=== PATIENT | female | born 1945 | race Two or more races ===

== ENCOUNTER 2019-11-22 02:51 | Inpatient (IN) | payer MEDICARE, OTHER ==
[~2019-11-22] VITALS: Ht 154.9 cm; Wt 68.9 kg
--- NOTE | 2019-11-22 04:05 | NUR ---
NURSE NOTES: Received report from EVARISTO Beckford from [facility]. ETA 10-15 minutes.
[2019-11-22 05:00] VITALS: BP 110/65
--- NOTE | 2019-11-22 05:00 | NUR ---
NURSE NOTES: Patient arrived from [facility] via gurney accompanied by 2 account collector, and family members without any incident. Patient is awake, A/Ox4. Primarily Belarusian speaking. Denies pains this time. No signs of acute distress noted. Patient was transferred to hospital bed via draw sheet method by 2 account collector, and 2 staff members. Vital signs taken T=96.7, HR=87, RR=18, FK=976/65, N9aid=19%. Placed tele box on, SR on the monitor, 87 bpm. Checked IV site and flushed. No erythema, bleeding or infiltration noted. Peritoneal dialysis noted at left lower abdomen. Body assessment done with no skin issues. Med recon done. Bed at lowest position, brakes on, siderailsx3. Call light within reach. Will continue to monitor. Addendum: 11/25/19 at 1850 by Sabine Morales RN Peritoneal dialysis noted at right lower abdomen. Addendum: 11/25/19 at 185 by Sabine Morales RN Patient has no belongings.
--- NOTE | 2019-11-22 05:30 | NUR ---
NURSE NOTES: Paged Dr. Limon for admitting orders. Noted and carried out.
[2019-11-22] MEDS ORDERED: RESTASIS1 EACH BOTH EYES (06:08)
[2019-11-22] MEDS ORDERED: SYNTHROID137 MCG ORAL (06:08)
[2019-11-22] MEDS ORDERED: PANTOPRAZOLE SO20 MG ORAL (06:08)
[2019-11-22] MEDS ORDERED: PATANOL1 DROP BOTH EYES (06:08)
[2019-11-22] MEDS ORDERED: ALENDRONAT70 MG/75 M PO (06:08)
[2019-11-22] MEDS ORDERED: ASPIRIN81 M3 PO (06:08)
[2019-11-22] MEDS ORDERED: CALCITRIOL0.25 MCG PO (06:08)
[2019-11-22] MEDS ORDERED: SIMVASTATIN20 MG ORAL (06:08)
--- NOTE | 2019-11-22 07:35 | NUR ---
NURSE NOTES: Pt alert x4. on cardiac cath no signs of cardiac or respiratory distress. pt is not complaining of pain. Bed locked and in lowest position. Call light within reach. Pt has peritoneal dialysis cath. Will continue to follow plan of care.
--- NOTE | 2019-11-22 07:40 | NUR ---
NURSE NOTES: Still for MRSA, VRE and CRE. Will endorsed to AM RN shift.
--- NOTE | 2019-11-22 07:45 | NUR ---
HAND-OFF: Report given to EVARISTO Singh. Plan of care endorsed.
[2019-11-22 08:29] VITALS: BP 102/48
[2019-11-22 09:00] VITALS: BP 116/65
[2019-11-22] MEDS ORDERED: Aspirin Baby 81mg ORAL SCH (09:00)
[2019-11-22 09:17] LABS: BASOPHILS % (AUTO) 1.3 % (0.0-2.0); HEMATOCRIT 32.3 % (37.0-47.0); HEMOGLOBIN 11.7 G/DL (12.0-16.0); LYMPHOCYTES % (AUTO) 25.7 % (20.0-45.0); MEAN CORPUSCULAR VOLUME 100 FL (80-99); MONOCYTES % (AUTO) 12.5 % (1.0-10.0); NEUTROPHILS % (AUTO) 59.5 % (45.0-75.0); PLATELET COUNT 117 K/UL (150-450); RED BLOOD COUNT 3.24 M/UL (4.20-5.40); RED CELL DISTRIBUTION WIDTH 12.3 % (11.6-14.8); WHITE BLOOD COUNT 6.4 K/UL (4.8-10.8)
[2019-11-22 09:31] LABS: ALANINE AMINOTRANSFERASE 19 U/L (12-78); ALBUMIN 2.4 G/DL (3.4-5.0); ALBUMIN/GLOBULIN RATIO 0.6 (1.0-2.7); ALKALINE PHOSPHATASE 178 U/L (46-116); ANION GAP 11 mmol/L (5-15); ASPARTATE AMINO TRANSFERASE 26 U/L (15-37); BILIRUBIN,TOTAL 1.2 MG/DL (0.2-1.0); BLOOD UREA NITROGEN 45 mg/dL (7-18); CARBON DIOXIDE 28 MMOL/L (21-32); CHLORIDE 89 MMOL/L (98-107); PHOSPHORUS 6.1 MG/DL (2.5-4.9); POTASSIUM 2.8 MMOL/L (3.5-5.1); SODIUM 128 MMOL/L (136-145)
[2019-11-22 10:32] LABS: BILIRUBIN,DIRECT 0.4 MG/DL (0.0-0.3)
--- NOTE | 2019-11-22 10:53 | NUR ---
MRI BRAIN W/O COMPLETED.
[2019-11-22] MEDS: Heparin 5000 units/ml inj SUBQ SCH ×2 (11:33→20:59)
[2019-11-22 12:00] VITALS: BP 116/65
--- NOTE | 2019-11-22 13:27 | Consultation ---
History of Present Illness General Date patient seen: Nov 22, 2019 Time patient seen: 11:30 Chief Complaint: altered mental status, L sided numbness Referring physician: Dr Limon Reason for Consultation: critical care/hospitalist Present Illness HPI 74 y/old female with PMH of ESRD on peritoneal dialysis at home, amyloidosis, hypothyroidism, hyperlipidemia, OP, intially presented to OSH with c/o confusion and L sided numbness. 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 moose was not a candidate for IV tPA due since she had a very mild deficit , only decreased sensation to the left side of the face, arm and leg. No pronator drift. Allergies: Coded Allergies: No Known Allergies (Unverified , 11/22/19) Medication History Scheduled Alendronate Sodium (Alendronate Sodium), 70 MG PO ONCE A WEEK, (Reported) Aspirin (Aspirin), 81 MG PO 3XW, (Reported) Calcitriol (Calcitriol), 0.25 MCG PO 2XW, (Reported) Cyclosporine (Restasis), 1 DROP BOTH EYES EVERY 12 HOURS, (Reported) Levothyroxine Sodium (Synthroid), 88 MCG ORAL DAILY, (Reported) Olopatadine (Patanol), 1 DROP BOTH EYES DAILY, (Reported) Pantoprazole (Pantoprazole), 40 MG ORAL DAILY, (Reported) Simvastatin (Zocor), 20 MG ORAL BEDTIME, (Reported) Patient History Healthcare decision maker Resuscitation status Full Code Advanced Directive on File Review of Systems Respiratory: Reports: no symptoms Cardiovascular: Reports: no symptoms Gastrointestinal: Reports: constipation Genitourinary: Reports: other - renal failure on peritoneal dialysis at home Musculoskeletal: Reports: joint pain Skin: Reports: no symptoms Psychiatric: Reports: no symptoms Neurological: Reports: see HPI Endocrine: Reports: no symptoms Hematologic/Lymphatic: Reports: no symptoms Physical Exam General Appearance: no apparent distress, other - awake, Mongolian speaking female Lines, tubes and drains: peripheral HEENT: normocephalic, atraumatic, anicteric Neck: non-tender, supple Respiratory/Chest: lungs clear, no respiratory distress, no accessory muscle use Cardiovascular/Chest: normal rate, regular rhythm Abdomen: normal bowel sounds, non tender, soft Extremities: normal range of motion, non-tender, no calf tenderness Skin Exam: warm/dry Neurologic: alert, responsive, other - no pronator drift, motor strength even and symmetrical bilaterally 5/5, no sensory deficits Musculoskeletal: normal muscle bulk Last 24 Hour Vital Signs Date Time Temp Pulse Resp B/P (MAP) Pulse Ox O2 Delivery O2 Flow Rate FiO2 11/22/19 08:29 98.3 83 20 102/48 (66) 97 11/22/19 08:00 82 11/22/19 05:55 Room Air 11/22/19 05:00 96.6 87 18 110/65 (80) 98 11/22/19 05:00 87 Intake and Output 11/21/19 11/22/19 19:00 07:00 # Voids 1 Laboratory Tests Test 11/22/19 08:50 White Blood Count 6.4 K/UL (4.8-10.8) Red Blood Count 3.24 M/UL (4.20-5.40) L Hemoglobin 11.7 G/DL (12.0-16.0) L Hematocrit 32.3 % (37.0-47.0) L Mean Corpuscular Volume 100 FL (80-99) H Mean Corpuscular Hemoglobin 36.0 PG (27.0-31.0) H Mean Corpuscular Hemoglobin Concent 36.1 G/DL (32.0-36.0) H Red Cell Distribution Width 12.3 % (11.6-14.8) Platelet Count 117 K/UL (150-450) L Mean Platelet Volume 6.4 FL (6.5-10.1) L Neutrophils (%) (Auto) 59.5 % (45.0-75.0) Lymphocytes (%) (Auto) 25.7 % (20.0-45.0) Monocytes (%) (Auto) 12.5 % (1.0-10.0) H Eosinophils (%) (Auto) 1.0 % (0.0-3.0) Basophils (%) (Auto) 1.3 % (0.0-2.0) Sodium Level 128 MMOL/L (136-145) L Potassium Level 2.8 MMOL/L (3.5-5.1) L Chloride Level 89 MMOL/L (98-107) L Carbon Dioxide Level 28 MMOL/L (21-32) Anion Gap 11 mmol/L (5-15) Blood Urea Nitrogen 45 mg/dL (7-18) H Creatinine 9.0 MG/DL (0.55-1.30) H Estimat Glomerular Filtration Rate mL/min (>60) Glucose Level 122 MG/DL (74-106) H Calcium Level 9.0 MG/DL (8.5-10.1) Phosphorus Level 6.1 MG/DL (2.5-4.9) H Magnesium Level 2.0 MG/DL (1.8-2.4) Total Bilirubin 1.2 MG/DL (0.2-1.0) H Direct Bilirubin 0.4 MG/DL (0.0-0.3) H Aspartate Amino Transf (AST/SGOT) 26 U/L (15-37) Alanine Aminotransferase (ALT/SGPT) 19 U/L (12-78) Alkaline Phosphatase 178 U/L (46-116) H Total Protein 6.5 G/DL (6.4-8.2) Albumin 2.4 G/DL (3.4-5.0) L Globulin 4.1 g/dL Albumin/Globulin Ratio 0.6 (1.0-2.7) L Height (Feet): 5 Height (Inches): 1.00 Weight (Pounds): 152 Medications Current Medications Medications (Trade) Dose Ordered Sig/Kelly Route PRN Reason Start Time Stop Time Status Last Admin Dose Admin Alendronate Sodium (Fosamax) 70 mg QWEEK ORAL 11/26/19 06:30 12/26/19 06:29 Aspirin (ASA) 81 mg 3XW ORAL 11/22/19 09:00 12/22/19 08:59 11/22/19 09:28 Atorvastatin Calcium (Lipitor) 10 mg BEDTIME ORAL 11/22/19 21:00 12/22/19 20:59 Calcitriol (Rocatrol) 0.25 mcg 2XW ORAL 11/23/19 09:00 12/23/19 08:59 Heparin Sodium (Porcine) (Heparin 5000 units/ml) 5,000 units EVERY 12 HOURS SUBQ 11/22/19 10:00 12/22/19 09:59 11/22/19 11:33 Levothyroxine Sodium (Synthroid) 88 mcg DAILY@0630 ORAL 11/23/19 06:30 12/23/19 06:29 Pantoprazole (Protonix) 40 mg DAILY ORAL 11/22/19 09:00 12/22/19 08:59 11/22/19 09:27 Patient Own Medication (Patient's Own Med) 1 ea BID BOTH EYES 11/22/19 18:00 12/22/19 17:59 Patient Own Medication (Patient's Own Med) 1 ea DAILY BOTH EYES 11/22/19 14:00 12/22/19 13:59 Assessment/Plan Assessment/Plan: ASSESSMENT acute encephalopathy left side numbness, r/o CVA/TIA ESRD on peritoneal dialysis amyloidosis hypothyroidism OP E/lyte imbalance PLAN OF CARE tele MRI brain ECHO carotid Duplex Lipid panel neuro eval ASA, statin swallow eval PT eval and Rx fall precautions nephro eval for dialysis , only HD can be povided, since peritoneal dialysis not available at this hx resume home meds DVT, GI prophylaxis case discussed and evaluated by supervising physician Rand Cornell NP Nov 22, 2019 13:27
--- NOTE | 2019-11-22 14:05 | NUR ---
TRANSFER UPDATE CLINICALS FAXED TO: [facility] TRANSFER [facility] Addendum: 11/22/19 at 1531 by BREANN FLORES LVN LVN SPOKE WITH LIFE SKILLS TEACHER, WON, AT [facility] THEY ARE REVIEWING INFORMATION. ACCEPTING PHYSICIAN DONNY BE DR PEDROZA.....THEY WANT TO KNOW WHO WILL BE THE ACCEPTING PAYROLL AND BENEFITS SPECIALIST MESSAGE LEFT FOR DR ZALDIVAR AND DR PEDROZA [facility] [employer] SPECIALIST T: [phone] Addendum: 11/22/19 at 1538 by BREANN FLORES LVN LVN [facility] UNABLE TO ACCEPT THEIR DIALYSIS SERVICE ONLY HAS ONE CYPHER FOR PERITONEAL DIALYSIS
--- NOTE | 2019-11-22 14:19 | Consultation ---
Consult Note Consult Note asked to eval at the request of Dr Limon for dialysis management history taken from daughter in law , Haydee 74 y/old female with PMH of ESRD on peritoneal dialysis at home, amyloidosis, hypothyroidism, hyperlipidemia, OP, intially presented to OSH with c/o confusion and L sided numbness. 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 patient was not a candidate for IV tPA due since she had a very mild deficit , only decreased sensation to the left side of the face, arm and leg. No pronator drift. : No Known Allergies (Unverified , 11/22/19) Meds: Alendronate Sodium (Alendronate Sodium), 70 MG PO ONCE A WEEK, (Reported) Aspirin (Aspirin), 81 MG PO 3XW, (Reported) Calcitriol (Calcitriol), 0.25 MCG PO 2XW, (Reported) Cyclosporine (Restasis), 1 DROP BOTH EYES EVERY 12 HOURS, (Reported) Levothyroxine Sodium (Synthroid), 88 MCG ORAL DAILY, (Reported) Olopatadine (Patanol), 1 DROP BOTH EYES DAILY, (Reported) Pantoprazole (Pantoprazole), 40 MG ORAL DAILY, (Reported) Simvastatin (Zocor), 20 MG ORAL BEDTIME, (Reported) No allergy Full Code examined data reviewed Assessment/Plan acute encephalopathy, ? Metabolic left side numbness, r/o CVA/TIA ESRD on peritoneal dialysis amyloidosis hypothyroidism Electrolyte imbalance Anemia Peritoneal dialysis is a service not available at [facility] MRI brain neuro eval 2 D ECHO PO K supplements carotid Duppelx Lipid panel ASA, statin swallow eval PT eval and Rx fall precautions nephro eval for dialysis resume home meds DVT, GI prophylaxis Addendum 35 minutes face to face conversation I had a long conversation with Haydee the patient's [id number] with presence of Mer nurse manager outpatient at 2 E. I explained to her that the peritoneal dialysis is a service that is not offered at [facility] and when and if dialysis is needed the patient has to receive hemodialysis. I have informed the Dr Limon and the mental health case manager to arrange transferring the patient to a hospital which provides peritoneal dialysis. However if the transfer cannot be arranged patient may need hemodialysis as early as tomorrow. Haydee will discuss that with the rest of the family and will let me know the decision in that regard. Faheem Castillo MD Nov 22, 2019 14:19
[2019-11-22] MEDS: OLOPATADINE 0.2% BOTH EYES SCH (14:29)
[2019-11-22 16:00] VITALS: BP 119/64
[2019-11-22] MEDS ORDERED: FUROSEMIDE40 MG ORAL (16:07)
[2019-11-22] MEDS: RESTASIS 0.05% BOTH EYES SCH (18:24)
--- NOTE | 2019-11-22 19:55 | NUR ---
HAND-OFF: Report given to Usha/EVARISTO, pt in stable condition. Pt still needs to urinate so we can collect urine sample. If pt is unable to urinate there is an order for straight cath. Doctor Holly gave telephone order to ok straight cath.
--- NOTE | 2019-11-22 19:56 | NUR ---
NURSE NOTES: Received pt from EVARISTO Singh. Pt awake, alert, and talkative. Bed in lowest position. Call light within reach. Will continue to monitor.
[2019-11-22 20:00] VITALS: BP 130/70
[2019-11-22] MEDS: Furosemide 40mg tab ORAL SCH (20:14)
--- NOTE | 2019-11-22 21:30 | NUR ---
NURSE NOTES: Called and left a message with Dr. Limon and Dr. Castillo regarding pts anxiety and labs. Awaiting call back.
[2019-11-22] MEDS ORDERED: ALPRAZolam 0.25mg tab ORAL PRN (23:15)
[2019-11-23] VITALS: BP 124/54
--- NOTE | 2019-11-23 01:14 | NUR ---
HAND-OFF: Report given to EVARISTO Junior. Pt stable.
--- NOTE | 2019-11-23 01:15 | NUR ---
NURSE NOTES: Received pt from EVARISTO Kerr. Pt is asleep resting in bed with family at bedside. Iv site intact. Bed locked in lowest position, bed alarm on, call light within reach. will continue with plan of care.
[2019-11-23 04:00] VITALS: BP 128/61
[2019-11-23 07:08] LABS: BASOPHILS % (AUTO) 1.4 % (0.0-2.0); EOSINOPHILS % (AUTO) 1.9 % (0.0-3.0); HEMATOCRIT 31.5 % (37.0-47.0); HEMOGLOBIN 11.7 G/DL (12.0-16.0); LYMPHOCYTES % (AUTO) 29.8 % (20.0-45.0); MEAN CORPUSCULAR VOLUME 98 FL (80-99); MONOCYTES % (AUTO) 13.8 % (1.0-10.0); NEUTROPHILS % (AUTO) 53.1 % (45.0-75.0); PLATELET COUNT 128 K/UL (150-450); RED BLOOD COUNT 3.23 M/UL (4.20-5.40); RED CELL DISTRIBUTION WIDTH 12.1 % (11.6-14.8); WHITE BLOOD COUNT 6.5 K/UL (4.8-10.8)
[2019-11-23 07:18] LABS: % IRON SATURATION 53 % (15-50); IRON 72 ug/dL (50-175); TOTAL IRON BINDING CAPACITY 137 ug/dL (250-450)
[2019-11-23 07:25] LABS: GAMMA GLUTAMYL TRANSPEPTIDASE 212 U/L (5-85); PHOSPHORUS 6.4 MG/DL (2.5-4.9)
[2019-11-23 07:27] LABS: ALANINE AMINOTRANSFERASE 19 U/L (12-78); ALBUMIN 2.3 G/DL (3.4-5.0); ALBUMIN/GLOBULIN RATIO 0.6 (1.0-2.7); ALKALINE PHOSPHATASE 182 U/L (46-116); ANION GAP 12 mmol/L (5-15); ASPARTATE AMINO TRANSFERASE 24 U/L (15-37); BILIRUBIN,TOTAL 1.1 MG/DL (0.2-1.0); BLOOD UREA NITROGEN 47 mg/dL (7-18); CALCIUM 9.2 MG/DL (8.5-10.1); CARBON DIOXIDE 26 MMOL/L (21-32); CHLORIDE 88 MMOL/L (98-107); CHOLESTEROL 106 MG/DL (< 200); CREATININE 9.3 MG/DL (0.55-1.30); FERRITIN 367 NG/ML (8-388); HDL CHOLESTEROL 29 MG/DL (40-60); POTASSIUM 3.8 MMOL/L (3.5-5.1); SODIUM 125 MMOL/L (136-145); TRIGLYCERIDES 74 MG/DL (30-150)
[2019-11-23 07:28] LABS: BILIRUBIN,DIRECT 0.4 MG/DL (0.0-0.3)
[2019-11-23 07:29] LABS: INR 1.1 (0.9-1.1)
--- NOTE | 2019-11-23 07:29 | NUR ---
HAND-OFF: Report given to EVARISTO Koo. Pt is awake and resting in bed in no acute distress. endorsed plan of care.
--- NOTE | 2019-11-23 07:45 | NUR ---
NURSE NOTES: Addendum: 11/23/19 at 1146 by KACEY MORALES RN Recvd pt. Pt is awake and oriented x2. Family at bedside. Pt expressed desire to be dc home to continue PD. Dr Castillo states itsup to family to decide if they want HD or continue PD. Haydee, family member was notified.
[2019-11-23 08:00] VITALS: BP 102/63
[2019-11-23] MEDS: Heparin 5000 units/ml inj SUBQ SCH (08:22)
--- NOTE | 2019-11-23 08:30 | NUR ---
Dr. Lutzan here to discuss treatment plan with patient & family; He Explained to Pt. & Family lab. results are abnormal and based on results he discussed need for patient to have Dialysis. He explained since [facility] [place], his recommendation is for patient to have temporary dialysis catheter placed for temporary Hemodialysis. Family wants to discuss the issue with Dr. Limon, then they will decide.
[2019-11-23] MEDS: RESTASIS 0.05% BOTH EYES SCH (08:31)
[2019-11-23] MEDS: OLOPATADINE 0.2% BOTH EYES SCH (08:32)
[2019-11-23] MEDS: Furosemide 40mg tab ORAL SCH (08:40)
[2019-11-23] MEDS ORDERED: Calcitriol 0.25mcg Cap ORAL SCH (09:00)
--- NOTE | 2019-11-23 09:12 | Nephrology Progress Note ---
Assessment/Plan Problem List: (1) ESRD (end stage renal disease) on dialysis (2) Metabolic encephalopathy (3) Anemia in chronic kidney disease (CKD) Assessment acute encephalopathy, ? Metabolic- worsenning HypoNatremia left side numbness, r/o CVA/TIA ESRD on peritoneal dialysis amyloidosis hypothyroidism Electrolyte imbalance Anemia Plan Peritoneal dialysis is a service not available at [facility] MRI brain neuro eval 2 D ECHO PO K supplements carotid Duppelx Lipid panel ASA, statin swallow eval PT eval and Rx fall precautions nephro eval for dialysis resume home meds DVT, GI prophylaxis I believe that patient need to be hemodialysed today since Peritoneal dialysis is not a service offered at [facility] and transfer to other facility been unsuccessful discussed with family in the room at presence of RN "Hanane" and charge nurse "Mer" 35 minutes Subjective ROS Limited/Unobtainable: No Constitutional: Reports: malaise, weakness Objective Objective Last 24 Hour Vital Signs Date Time Temp Pulse Resp B/P (MAP) Pulse Ox O2 Delivery O2 Flow Rate FiO2 11/23/19 08:00 97.7 77 20 102/63 (76) 98 11/23/19 08:00 83 11/23/19 04:00 81 11/23/19 04:00 97.5 81 18 128/61 (83) 95 11/23/19 00:00 83 11/23/19 00:00 96.8 83 18 124/54 (77) 97 11/22/19 21:00 Room Air 11/22/19 20:00 98.8 86 18 130/70 (90) 100 11/22/19 20:00 79 11/22/19 16:00 86 11/22/19 16:00 97.0 82 18 119/64 (82) 99 11/22/19 12:00 71 11/22/19 12:00 97.1 74 19 116/65 (82) 95 Intake and Output 11/22/19 11/23/19 19:00 07:00 Intake Total 780 ml Balance 780 ml Intake Oral 780 ml # Voids 1 3 # Bowel Movements 2 2 Laboratory Tests 11/23/19 06:06: White Blood Count 6.5, Red Blood Count 3.23L, Hemoglobin 11.7L, Hematocrit 31.5L , Mean Corpuscular Volume 98, Mean Corpuscular Hemoglobin 36.1H, Mean Corpuscular Hemoglobin Concent 37.0H, Red Cell Distribution Width 12.1, Platelet Count 128L, Mean Platelet Volume 6.5, Neutrophils (%) (Auto) 53.1, Lymphocytes (%) (Auto) 29.8, Monocytes (%) (Auto) 13.8H, Eosinophils (%) (Auto) 1.9, Basophils (%) (Auto) 1.4, Prothrombin Time 11.5, Prothromb Time International Ratio 1.1, Activated Partial Thromboplast Time 33, Sodium Level 125L, Potassium Level 3.8, Chloride Level 88L, Carbon Dioxide Level 26, Anion Gap 12, Blood Urea Nitrogen 47H, Creatinine 9.3H, Estimat Glomerular Filtration Rate , Glucose Level 88, Hemoglobin A1c 5.3, Uric Acid 6.8, Calcium Level 9.2, Phosphorus Level 6.4H, Iron Level 72, Total Iron Binding Capacity 137L, Percent Iron Saturation 53H, Unsaturated Iron Binding 65L, Ferritin 367, Total Bilirubin 1.1H, Direct Bilirubin 0.4H, Gamma Glutamyl Transpeptidase 212H, Aspartate Amino Transf (AST/SGOT) 24, Alanine Aminotransferase (ALT/SGPT) 19, Alkaline Phosphatase 182H, Troponin I 0.023, C-Reactive Protein, Quantitative 2.6H, Pro-B-Type Natriuretic Peptide 1387H, Total Protein 6.4, Albumin 2.3L, Globulin 4.1, Albumin/Globulin Ratio 0.6L, Triglycerides Level 74, Cholesterol Level 106, LDL Cholesterol 63, HDL Cholesterol 29L, Cholesterol/HDL Ratio 3.7, Vitamin B12 Level 1557H, Folate 11.6, Thyroid Stimulating Hormone (TSH) 0.145L Height (Feet): 5 Height (Inches): 1.00 Weight (Pounds): 152 General Appearance: no apparent distress, lethargic Cardiovascular: normal rate Respiratory/Chest: decreased breath sounds Abdomen: distended Faheem Castillo MD Nov 23, 2019 09:12
--- NOTE | 2019-11-23 09:33 | Diagnostic Imaging Report ---
Indication: Altered mental status Technique: The head was imaged in a 1.5 Fina magnet. Sequences obtained include sagittal and axial T1 FLAIR, axial T2 fast spin echo with fat saturation, axial T2* GRE, axial T2 FLAIR, diffusion and ADC map. Comparison: None There is a large intraventricular cystic lesion measuring 3.2 x 2.5 x 4.7 cm within the left lateral ventricle. The cystic lesion is homogeneous CSF intensity with a barely perceptible wall and appears to be associated with the left choroid plexus. This is consistent with choroid plexus cyst and is notable for slightly expanding the size of the left lateral ventricle. Part of the cyst crosses midline toward the right. There is generalized atrophy of the brain characterized by prominence of the sulci ventricles and basal cisterns. There is no evidence of hydrocephalus, acute CVA, mass effect, edema or hemorrhage. Diffusion and is normal. There is periventricular T2 hyperintense signal consistent chronic small vessel disease. There is a small air-fluid level in the left maxillary sinus. There is a 1.5 cm fluid retention cyst in the right maxillary sinus. Corpus callosum is unremarkable. Sella is unremarkable. Bone marrow signal is normal. 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 The finding may be incidental. Please correlate clinically. Generalized atrophy of the brain. Chronic small vessel disease involving periventricular white matter. Sinus disease
--- NOTE | 2019-11-23 10:30 | Diagnostic Imaging Report ---
Indication: CVA. Altered mental status TECHNIQUE: Duplex extracranial carotid and vertebral artery sonography performed with color flow imaging and waveform analysis. COMPARISON: None FINDINGS: Right carotid: Grayscale and color-flow imaging demonstrating no hemodynamically significant stenosis within the common carotid artery, extracranial internal carotid artery. Peak systolic and end-diastolic velocities are within normal limits. ICA/CCA ratios are within normal limits. Mild heterogeneous plaques are demonstrated consistent with atherosclerotic disease. Left carotid: Grayscale and color-flow imaging demonstrating no hemodynamically significant stenosis within the common carotid artery, extracranial internal carotid artery. Peak systolic and end-diastolic velocities are within normal limits. ICA/CCA ratios are within normal limits. Mild heterogeneous plaques are demonstrated consistent with atherosclerotic disease. Vertebral arteries: Antegrade flow demonstrated within both vertebral arteries. IMPRESSION: No hemodynamically significant extracranial carotid artery stenosis identified. Antegrade flow within both vertebral arteries. This report utilizes carotid stenosis grading criteria based on the meeting of Society of radiologists in ultrasound consensus conference, July 2002.
--- NOTE | 2019-11-23 10:33 | NUR ---
NURSE NOTES: per Dr Limon is ok to dc home so pt can continue pd
--- NOTE | 2019-11-23 11:46 | NUR ---
NURSE NOTES: Pt was dc home. Advised pt to follow up with neurologist, patient and family understood. IV removed, cutting and splicing supervisor removed, ID band removed. Pt dc in stable condition, pt went home with josue and her son via private vehicle
--- NOTE | 2019-11-23 12:32 | NUR ---
CASE MANAGEMENT:REVIEW 11/22/19 74 YR OLD FEMALE BIBA FROM [facility] CC: AMS. LT SIDED NUMBNESS PMH: ESRD ON PD SI: ACUTE ENCEPHALOPATHY 96.6 87 18 110/65 98% ON RA H/H-11.7/32.3 PLT-117 NA-128 K-2.8 BUN+45 CR+9.0 IS: PROTONIX PO QD ASA PO 3X/W K-DUR PO X1 LASIX PO Q12 : TO TELEMETRY PLAN: NEPHRO CONSULT 11/23/19 DISCHARGE HOME
[2019-11-23] MEDS ORDERED: Docusate 100mg cap ORAL SCH (13:00)
--- NOTE | 2019-11-23 16:26 | Internal Med Progress Note ---
Subjective Date of Service: Nov 23, 2019 Physician Name Omar Barrera Attending Physician Kanu Limon MD Allergies: Coded Allergies: No Known Allergies (Unverified , 11/22/19) ROS Limited/Unobtainable: No Constitutional: Reports: no symptoms HEENT: Reports: no symptoms Cardiovascular: Reports: no symptoms Respiratory: Reports: no symptoms Gastrointestinal/Abdominal: Reports: no symptoms Genitourinary: Reports: no symptoms Neurologic/Psychiatric: Reports: no symptoms Subjective 74 YO F with history of ESRD, on peritoneal dialysis, admitted with confusion and generalized weakness. Now hyponatremia. Cover for Int Med-Dr Limon. Objective Last Vital Signs Date Time Temp Pulse Resp B/P (MAP) Pulse Ox O2 Delivery O2 Flow Rate FiO2 11/23/19 09:00 Room Air 11/23/19 08:00 97.7 77 20 102/63 (76) 98 General Appearance: WD/WN, no apparent distress, alert EENT: PERRL/EOMI, normal ENT inspection Neck: non-tender, normal alignment, supple, normal inspection Cardiovascular: normal peripheral pulses, normal rate, regular rhythm, no gallop/murmur, no JVD Respiratory/Chest: chest wall non-tender, lungs clear, normal breath sounds, no respiratory distress, no accessory muscle use Abdomen: normal bowel sounds, non tender, soft, no organomegaly, no mass Extremities: normal range of motion, non-tender Neurologic: catalog specialist II-XII grossly normal, no motor/sensory deficits Skin: normal pigmentation, warm/dry Laboratory Tests Test 11/23/19 06:06 White Blood Count 6.5 K/UL (4.8-10.8) Red Blood Count 3.23 M/UL (4.20-5.40) L Hemoglobin 11.7 G/DL (12.0-16.0) L Hematocrit 31.5 % (37.0-47.0) L Mean Corpuscular Volume 98 FL (80-99) Mean Corpuscular Hemoglobin 36.1 PG (27.0-31.0) H Mean Corpuscular Hemoglobin Concent 37.0 G/DL (32.0-36.0) H Red Cell Distribution Width 12.1 % (11.6-14.8) Platelet Count 128 K/UL (150-450) L Mean Platelet Volume 6.5 FL (6.5-10.1) Neutrophils (%) (Auto) 53.1 % (45.0-75.0) Lymphocytes (%) (Auto) 29.8 % (20.0-45.0) Monocytes (%) (Auto) 13.8 % (1.0-10.0) H Eosinophils (%) (Auto) 1.9 % (0.0-3.0) Basophils (%) (Auto) 1.4 % (0.0-2.0) Prothrombin Time 11.5 SEC (9.30-11.50) Prothromb Time International Ratio 1.1 (0.9-1.1) Activated Partial Thromboplast Time 33 SEC (23-33) Sodium Level 125 MMOL/L (136-145) L Potassium Level 3.8 MMOL/L (3.5-5.1) Chloride Level 88 MMOL/L (98-107) L Carbon Dioxide Level 26 MMOL/L (21-32) Anion Gap 12 mmol/L (5-15) Blood Urea Nitrogen 47 mg/dL (7-18) H Creatinine 9.3 MG/DL (0.55-1.30) H Estimat Glomerular Filtration Rate mL/min (>60) Glucose Level 88 MG/DL (74-106) Hemoglobin A1c 5.3 % (4.3-6.0) Uric Acid 6.8 MG/DL (2.6-7.2) Calcium Level 9.2 MG/DL (8.5-10.1) Phosphorus Level 6.4 MG/DL (2.5-4.9) H Iron Level 72 ug/dL (50-175) Total Iron Binding Capacity 137 ug/dL (250-450) L Percent Iron Saturation 53 % (15-50) H Unsaturated Iron Binding 65 ug/dL (112-346) L Ferritin 367 NG/ML (8-388) Total Bilirubin 1.1 MG/DL (0.2-1.0) H Direct Bilirubin 0.4 MG/DL (0.0-0.3) H Gamma Glutamyl Transpeptidase 212 U/L (5-85) H Aspartate Amino Transf (AST/SGOT) 24 U/L (15-37) Alanine Aminotransferase (ALT/SGPT) 19 U/L (12-78) Alkaline Phosphatase 182 U/L (46-116) H Troponin I 0.023 ng/mL (0.000-0.056) C-Reactive Protein, Quantitative 2.6 mg/dL (0.00-0.90) H Pro-B-Type Natriuretic Peptide 1387 pg/mL (0-125) H Total Protein 6.4 G/DL (6.4-8.2) Albumin 2.3 G/DL (3.4-5.0) L Globulin 4.1 g/dL Albumin/Globulin Ratio 0.6 (1.0-2.7) L Triglycerides Level 74 MG/DL (30-150) Cholesterol Level 106 MG/DL (< 200) LDL Cholesterol 63 mg/dL (<100) HDL Cholesterol 29 MG/DL (40-60) L Cholesterol/HDL Ratio 3.7 (3.3-4.4) Vitamin B12 Level 1557 PG/ML (193-986) H Folate 11.6 NG/ML (8.6-58.9) Thyroid Stimulating Hormone (TSH) 0.145 uiU/mL (0.358-3.740) Intake and Output 11/22/19 11/23/19 19:00 07:00 Intake Total 780 ml Balance 780 ml Intake Oral 780 ml # Voids 1 3 # Bowel Movements 2 2 Assessment/Plan Problem List: (1) HTN (hypertension) (2) Hypothyroidism Assessment & Plan: Continue Synthroid. (3) Hypocholesterolemia Assessment & Plan: Continue lipitor. (4) Altered mental status Assessment & Plan: ?acute encephalopathy vs hyponatremia. MRI brain pending (5) Hyponatremia (6) ESRD (end stage renal disease) on dialysis Assessment & Plan: On peritoneal dialysis. Peritoneal dialysis not available at [facility]-attempt to transfer to facility that offers peritoneal dialysis. See nephrology note. Assessment/Plan D/C home for peritoneal dialysis and to follow up with nephrology. Omar Barrera MD Nov 23, 2019 16:26
--- NOTE | 2019-11-23 16:27 | History & Physical ---
History and Physical History & Physicial Dictated for Int Med-DR Limon no. [id number] Omar Barrera MD Nov 23, 2019 16:27
--- NOTE | 2019-11-25 21:44 | Discharge Summary ---
Discharge Summary Discharge Summary _ DATE OF ADMISSION: 11/22/2019 DATE OF DISCHARGE: 11/23/2019 DISCHARGED BY: Dr. Limon REASON FOR ADMISSION: 74 years old female with past medical history of end-stage renal disease, on peritoneal dialysis at home, amyloidosis, hypothyroidism, hyperlipidemia, osteoporosis, initially presented to outside hospital with complaint of confusion and left-sided numbness. 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 Patient had a very mild deficit with only decreased sensation in the left side of the face , arm and leg. No pronator drift. Patient subsequently transferred to [facility] for further evaluation and management. [facility] critical care Dr. Enamorado sales team leader Dr. Castillo [facility]: Patient admitted to telemetry floor. 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 Generalized atrophy of the brain. Chronic small vessel disease involving periventricular white matter. No acute intracranial pathology. Carotid duplex revealed no hemodynamically significant extracranial carotid artery stenosis. Antegrade flow within both vertebral arteries. Lipid panel was stable. Telemetry demonstrated sinus rhythm. Troponin negative. Patient was continued on aspirin and statin. Echocardiogram revealed preserved ejection fraction of 55 to 60% with no evidence of pericardial effusion. No evidence of wall motion abnormality. Right ventricular systolic pressure of 30. Anemia work-up revealed evidence of anemia of chronic disease , stable B12 and folate. Patient noted to have electrolyte abnormalities: low sodium 128 and low potassium 2.8. Peritoneal dialysis was not a service available at [facility]. Patient was offered to have hemodialysis , which she declined. Potassium was replaced, stable upon discharge. Home medications resumed . Swallow evaluation was ordered, patient declined, since reported no problems with swallowing, Physical therapy evaluation was ordered. Fall precautions maintained. DVT and GI prophylaxis provided. Encephalopathy was likely metabolic due to worsening hyponatremia. Patient decided to go home for peritoneal dialysis and to follow-up with her your own sales team leader. Patient subsequently was discharged home accompanied by her family, with home health services to follow. Due to rapid and expected improvement patient condition patient was discharged in 1 day FINAL DIAGNOSES: Acute metabolic encephalopathy Left-sided numbness ,possible TIA versus CVA End-stage renal disease ,on peritoneal dialysis Amyloidosis Hypothyroidism Osteoporosis Electrolyte imbalance Anemia of chronic kidney disease DISCHARGE MEDICATIONS: See Medication Reconciliation list. DISCHARGE INSTRUCTIONS: Patient was discharged home. Follow up with outpatient sales team leader fro peritoneal hemodialysis. Rand Cornell NP Nov 25, 2019 21:44
--- NOTE | 2019-11-28 12:00 | History and Physical Report ---
DATE OF ADMISSION: 11/22/2019 CHIEF COMPLAINT: The patient is a 74-year-old female, who presents with a chief complaint of acute onset of confusion. HISTORY OF PRESENT ILLNESS: The patient lives with her adult son. The patient's family is present except for the son that she lives with. According to family members, the patient became acutely confused last evening. This is unusual for her. The patient began to take her clothes off. This is unusual behavior for her. The patient initially presented to [facility] emergency room. Initial CAT scan of the brain was reported as no acute intracranial disease. The patient is transferred to [facility] for insurance purposes. The patient is admitted with acute onset of confusion to rule out acute cerebrovascular accident. REVIEW OF SYSTEMS: CONSTITUTIONAL: The patient denies weight loss or weight gain. The patient denies fevers or chills. HEENT: The patient denies ear or throat pain. The patient denies headache. CARDIOVASCULAR: The patient denies palpitations or chest pain. CHEST: The patient denies wheeze or shortness of breath. ABDOMEN: The patient denies nausea, vomiting, diarrhea, or constipation GENITOURINARY: The patient denies dysuria, increased frequency of urination. NEUROMUSCULAR: The patient complains of acute onset of confusion as above. The patient complains of generalized weakness. The patient denies seizures. PAST MEDICAL HISTORY: Significant for: 1. Hypertension. 2. Hypothyroidism. 3. End-stage renal disease, on peritoneal dialysis daily. 4. Hypercholesterolemia. 5. Osteoporosis. PAST SURGICAL HISTORY: The patient denies. CURRENT MEDICATIONS: 1. Protonix 20 mg p.o. daily. 2. Levoxyl 0.088 mg p.o. daily. 3. Aspirin 81 mg p.o. daily. 4. Zocor 20 mg p.o. daily. 5. Calcitriol 0.25 mcg on Wednesday and Wednesday. 6. Fosamax 70 mg p.o. weekly. 7. Lasix 40 mg p.o. twice daily. 8. Cyclosporine. ALLERGIES: No known drug allergies. SOCIAL HISTORY: The patient is and lives with her adult son. The patient denies tobacco or alcohol use. PHYSICAL EXAMINATION: VITAL SIGNS: Temperature 97.5, respirations 16, pulse 83, blood pressure 102/54. GENERAL: The patient is well-developed, well-nourished female, in no apparent distress. HEENT: Eyes, pupils equal and responsive to light and accommodation. Extraocular movements are intact. NECK: Supple without lymphadenopathy. CHEST: Lungs are clear to auscultation bilaterally without wheezes or rales. CARDIOVASCULAR: Regular rhythm and rate. S1, S2 normal without murmurs, rubs, or gallops. ABDOMEN: Soft, nontender, nondistended. Positive bowel sounds. No evidence of hepatosplenomegaly. Currently, no rebound or guarding noted. EXTREMITIES: Negative for clubbing, cyanosis, or edema. RECTAL/GENITAL: Refused. NEUROLOGIC: Cranial nerves II through XII are grossly intact without focal deficits. Motor strength is 5/5 bilaterally. Deep tendon reflexes are 2+ plantar. LABORATORY STUDIES: WBC is 6.9, hemoglobin , hematocrit 33.2, platelets 139,000. Sodium 127, potassium 3.0, chloride 85, CO2 24, BUN 38, creatinine 8.42, glucose 118. The CT scan of the brain was reported as no intracranial disease. ASSESSMENT: This is a 74-year-old female with: 1. Acute onset of confusion. 2. Generalized weakness. 3. Hyponatremia. 4. End-stage renal disease. 5. Hypertension. 6. Hypothyroidism. 7. Hypercholesterolemia. 8. Osteoporosis. TREATMENT: 1. Confusion/generalized weakness. A Neurology consultation has been obtained with Dr. Mathew Orozco. An MRI of the brain is pending. Carotid duplex Dopplers are pending. Confusion and weakness may be secondary to hyponatremia. We will follow recommendations of Neurology. 2. Hyponatremia. A Nephrology consultation has been obtained with Dr. Faheem Castillo. We will follow recommendations of Dr. Castillo. The patient is currently on peritoneal dialysis. 3. Hypertension, stable, off medication. The patient is currently hypotensive. 4. Hypothyroidism. Continue Synthroid as above. 5. Hypercholesterolemia. Continue Zocor as above. 6. Osteoporosis. Continue Fosamax. Omar Barrera M.D. DR: BRODY/MANOJ JOB#: [id number] CC:
== END 2019-11-23 11:46 | disposition home or self-care (01) | DRG 640 ==
LOC: 2E 04:47 → UNDODISIN 11-23 11:46
DX: E87.1 Hypo-osmolality and hyponatremia (principal); N18.6 End stage renal disease; G93.41 Metabolic encephalopathy; G45.9 Transient cerebral ischemic attack, unspecified; E85.9 Amyloidosis, unspecified; R20.0 Anesthesia of skin; Z99.2 Dependence on renal dialysis; E03.9 Hypothyroidism, unspecified; M81.0 Age-related osteoporosis without current pathological fracture; E87.8 Other disorders of electrolyte and fluid balance, not elsewhere classified; D63.1 Anemia in chronic kidney disease; Z79.82 Long term (current) use of aspirin
CPT/HCPCS: 36415; 70551; 80053; 80061; 82248; 82607; 82728; 82746; 82977; 83036; 83540; 83550; 83735; 83880; 84100; 84443; 84484; 84550; 85025; 85610; 85730; 86140; 87086; 93306; 93880; J8499